=== PATIENT | male | born 1995 | race Caucasian/White ===

== ENCOUNTER 2017-07-27 15:16 | Emergency (ER) | payer SELFPAY | END 2017-07-27 15:40 | disposition home or self-care (01) | LOC: NAV ERS 15:16 | DX: F10.229 Alcohol dependence with intoxication, unspecified (principal); F90.9 Attention-deficit hyperactivity disorder, unspecified type; F17.210 Nicotine dependence, cigarettes, uncomplicated; Z79.899 Other long term (current) drug therapy | CPT/HCPCS: 99283 ==